=== PATIENT | female | born 1985 | race Caucasian/White ===

== ENCOUNTER 2017-12-01 05:54 | Day surgery (SDC) | payer OTHER ==
[~2017-12-01] VITALS: Ht 165.1 cm; Wt 84.4 kg
[~2017-12-01 05:54] MED LIST: BCP S; CLIN150 PO; CYCL10 PO; FEXPSEER; HA MED; HEMOTOB PR; HYDACE25S PR; HYDACE5 PO; IBUP800 PO; PANT20; PRAHYD1AE TOP; PROC10 PO; RXCYCL10 PO
== END 2017-12-01 09:41 | disposition home or self-care (01) ==
LOC: ORSCMMR 05:54
DX: K62.5 Hemorrhage of anus and rectum (principal); K64.1 Second degree hemorrhoids
CPT/HCPCS: 88304; J1100; J1885; J2250; J2405; J3010; J7120